=== PATIENT | male | born 1990 | race American Indian/Alaskan Native ===

== ENCOUNTER 2021-04-22 16:45 | Emergency (ER) | payer OTHER ==
[2021-04-22 19:35] VITALS: BP 129/72
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
== END 2021-04-22 20:42 | disposition home or self-care (01) ==
LOC: EDBD 16:45 → ED 16:45
DX: R07.89 Other chest pain (principal); M79.642 Pain in left hand; R51.9 Headache, unspecified; V87.7XXA Person injured in collision between other specified motor vehicles (traffic), initial encounter; Y93.89 Activity, other specified; Y92.89 Other specified places as the place of occurrence of the external cause; Y99.8 Other external cause status
CPT/HCPCS: 71046; 99283